=== PATIENT | male | born 1995 | race Caucasian/White ===

== ENCOUNTER 2019-11-27 13:05 | Outpatient (CLI) | payer OTHER ==
--- NOTE | 2019-11-27 14:30 | SLEEP CARE CONSULTATION ---
Information from patient questionnaire entered by Jamshid Gonzalez. I have reviewed and concur with the information entered by Jamshid Gonzalez. This document represents the service I personally performed and the decisions made by me, Emi Lane ARNP. History of Present Illness Service Date and Time: 11/27/2019 1305 Reason for Visit: New patient Chief Complaint: reports: Unrefreshed sleep, Snoring, Observed pauses in breathing (even as a kid mother would check on him due to "hiccup" during sleep), Frequent awakenings at night (intermittently), Other (Awakes at night. On a night schedule for work.). denies: Insomnia Duration of Symptoms: Over a year Usual bedtime: 0230 AM Time it takes to fall asleep: 15 min to an hour Snores at night: Yes Observed to quit breathing while asleep: Yes Sleeps alone due to snoring: No Number of times waking at night: At least once Reasons for waking at night: reports: Snoring (Mostly), Bathroom (sometimes), Other (dry mouth, wake up to drink water). denies: Choking, Gasping for air Toss, Turn, or Twitch while sleeping: Yes Recalls having dreams: Yes Usually gets out of bed at: 10 AM Feels refreshed in the morning: No Morning headache: Yes (couple times a month, last couple of hours, takes analgesic that helps) Sleepy or fatigued during the day: Yes Ever fallen asleep while driving: No Takes day naps: Yes Dreams during day naps: No Prior sleep studies: No Additional HPI information: He has a long history of not being able to breathe well through his nose. When he breathes through his mouth he snores loudly and has been seen to gasp during sleep. He has been seeing an ENT specialist who recommended he be evaluated for NEGIN to see if this is part of his snoring problem. He states he is constantly waking up through the night. 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 He denies insomnia. He does get headaches intermittently that can last all day if he does not take an OTC analgesic. He states this does not happen very often. He does wake up often during the night because his mouth is very dry and drinks water. - Parasomnia Symptoms Ever been unable to move upon waking from sleep: No Ever felt weak in the knees when startled or emotional: No Bothered by creepy, crawly, restless sensations in legs: Yes Problems with memory or concentration: Yes Subjective Initial [place] Sleepiness Scale score: 11 (in 2019) Past Medical History Past Medical History: reports: Other (E.O.E. (eosinophil esophagitis)). denies: Hypertension, Claustrophobia, Congestive Heart Failure, Diabetes, Coronary Heart Disease, Arrythmia, Hypothyroidism, Anemia, Anxiety, Impotence, Depression, Mood disorder Social History The patient's occupation is active . Patient is and lives in [place]. Have you smoked in the past 12 months: No Alcohol use: Yes Alcohol amount and frequency: 2-3 drinks casually weekly Caffeine use: Yes Caffeine amount and frequency: couple a day Family History Family history of sleep disordered breathing: Yes (Mother snores, father has insomnia) Family Hx Sleep Apnea: Mother: Snoring Allergies and Home Medications Drug allergies reviewed: Yes (no known drug allergies) Home medication list reviewed: Yes (OTC allergy medication as needed) Review of Systems Weight gain over past 5 years: 20 Cardiovascular: reports: other. denies: high blood pressure, palpitations, chest pain, irregular heart rate or pulse, leg or foot swelling, have to sleep sitting up Respiratory: denies: shortness of breath, chronic cough Gastrointestinal: reports: difficulty swallowing. denies: heartburn Urinary: denies: impotence Neurological: reports: headaches. denies: seizure, head trauma, disorientation, gait or balance problems Psychiatric: denies: anxiety, depression, mood disorder, claustrophobia Ear/Nose/Throat: reports: nasal congestion, sinus problems, nose bleeds (was getting daily, switched allergy meds and has not had last month; using humidifier), dry mouth/throat (daily), wisdom teeth removed. denies: hoarseness, injury to nose, tonsillectomy Endocrine: denies: thyroid disease, sluggishness Musculoskeletal: reports: neck pain, back pain. denies: muscle pain or cramping, mobility problems Immunologic: reports: sneezing, allergies to food or environment (seasonal allergies) Physical Exam Blood Pressure: 118/68 Cuff size: long Heart Rate: 59 O2 Saturation: 97 Height: 6 ft Weight: 253 lb 6.4 oz Body Mass Index: 34.3 BMI Classification: Obese Neck circumference: 17.5 (inches) HEENT: No craniofacial malformation Nostrils: patent to airflow Turbinates: swollen (on left mostly) Septum: midline Mouth and throat: normal Soft palate: normal Hard palate: arched Uvula: normal Uvula visualization: 25% Mallampati Class III Tongue: normal in size Tonsils: 1+ Chin and jaw: normal size and position Neck: normal w/o lymphadenopathy or thyromegaly Heart: regular rate and rhythm Lungs: clear bilaterally Impression and Plan 1. Suspected Obstructive Sleep Apnea-Hypopnea Syndrome, as suggested by a history of loud and irregular snoring, observed cessation of breath while asleep, gasping or choking in sleep, morning headache, unrefreshed sleep, and excessive daytime sleepiness. Narrow oropharynx and obesity are common predisposing factors for obstructive sleep apnea-hypopnea syndrome. I recommend proceeding to polysomnography to confirm the diagnosis and to assess severity. Patient does shift work and thinks it might be easier to do a HST due to his sleep schedule. I informed the patient of what the sleep studies involve and after some discussion, obtained agreement to proceed. The pathophysiology of obstructive sleep apnea-hypopnea syndrome was discussed with the patient and health risks of cardiovascular and cerebrovascular disease if not treated. AASM brochure for obstructive sleep apnea-hypopnea syndrome given and reviewed. Risks of drowsy driving discussed in detail and patient advised to avoid long distance driving and to ear pull machine operator at the first sign of drowsiness. Patient agreed to plan. * Schedule polysomnography. * Avoid long distance driving or driving when feeling sleepy. * Avoid alcohol, sedative and muscle relaxant around bedtime. * Attempt to lose weight. * Review instructions provided by trained office staff on how to prepare for the sleep study. * Return for follow-up after sleep study completed. Visit Type: In Office Time Spent with Patient (minutes): 30 Provider Statement: I spent 100% of the Face to Face Visit with the patient with greater than 50% spent counseling the patient and coordination of care.
[2019-11-27 14:31] VITALS: BP 118/68
== END 2019-11-27 13:06 | disposition home or self-care (01) ==
LOC: SC 13:05
PROVIDERS: ATTEND Nurse Practitioner Family
DX: R06.83 Snoring (principal); R06.81 Apnea, not elsewhere classified; G47.10 Hypersomnia, unspecified; G47.8 Other sleep disorders; E66.9 Obesity, unspecified; Z68.34 Body mass index [BMI] 34.0-34.9, adult
CPT/HCPCS: 99204; 99212

== ENCOUNTER 2020-08-16 14:18 | Emergency (ER) | payer OTHER ==
[2020-08-16 14:41] VITALS: BP 147/87
[2020-08-16] MEDS ORDERED: BUFFERED LIDOCAINE 10 ML SYRINGE SUBQ STA (14:44)
--- NOTE | 2020-08-16 14:45 | ED Physician Documentation ---
PD HPI LOWER EXT INJURY - Stated complaint Stated Complaint: R TOE INJ - Chief complaint Chief Complaint: Laceration - History obtained from History obtained from: Patient (Glass tabletop fell on his right great to at home just prior to arrival. He has moderate pain there. No other injuries.) Review of Systems Constitutional: reports: Reviewed and negative Eyes: reports: Reviewed and negative Ears: reports: Reviewed and negative PD PAST MEDICAL HISTORY - Present Medications Home Medications: Ambulatory Orders Medication Instructions Recorded Confirmed Ibuprofen 200 mg PO PRN 08/16/20 Loratadine [Claritin] 10 mg PO ONCE 08/16/20 08/16/20 - Allergies Allergies/Adverse Reactions: Allergies Allergy/AdvReac Type Severity Reaction Status Date / Time No Known Drug Allergies Allergy Verified 08/16/20 14:41 PD ED PE NORMAL - Vitals Vital signs reviewed: Yes - General General: Alert and oriented X 3, No acute distress - Extremities Extremities: Other (There is an abrasion on the dorsum of the right great toe just proximal to the nailbed and a 100% subungual hematoma.) - Neuro Neuro: Alert and oriented X 3, Normal speech Results - Vitals Vitals: Vital Signs - 24 hr 08/16/20 14:26 Temperature 36.4 C L Heart Rate 68 Respiratory 17 Rate Blood Pressure 147/87 H O2 Saturation 98 Oxygen O2 Source Room air Procedures - General procedure General procedure: After verbal informed consent a digital block was done of the right great toe in standard fashion. After an appropriate waiting period for excellent anesthesia the nail was trephinated using electrocautery with release of blood. PD MEDICAL DECISION MAKING - ED course ED course: He is released before the results of his x-ray, I did not feel there was a fracture but the radiologist felt there was a nondisplaced tuft fracture. I called him at home and discussed this. Departure - Departure Disposition: 01 Home, Self Care Clinical Impression: Subungual hematoma Toe fracture, right Qualifiers: Encounter type: initial encounter Toe: great toe Fracture type: closed Phalanx: distal Fracture alignment: nondisplaced Qualified Code(s): S92.424A - Nondisplaced fracture of distal phalanx of right great toe, initial encounter for closed fracture Condition: Good Instructions: ED Hematoma Subungual Comments: Recheck with your doctor in a week. Return for new or worsening symptoms. Forms: Activity restrictions Discharge Date/Time: 08/16/20 15:18
--- OUTSIDE RECORDS SUMMARY | 2020-08-16 14:56 | EXTERNAL MEDICAL SUMMARY RPT | Continuity of Care Document ---
:1995 Demographics Phone Unavailable Preferred Language Unknown Marital Status Unknown Congregational Affiliation Unknown Race Unknown Ethnic Group Unknown Author Organization [facility] Address [address] [place] [address] Phone Social History date description facility [id number]
--- NOTE | 2020-08-16 15:22 | XRAY Report ---
PROCEDURE: Toe(s) RT INDICATIONS: toe inj TECHNIQUE: 3 views of the right toe(s) acquired. COMPARISON: None FINDINGS: Bones: There is a minimally displaced fracture seen involving the distal lateral tip of the distal p halanx of the great toe. There is no intra-articular involvement. No additional fractures or dislocations. No suspicious bony lesions. Soft tissues: No suspicious soft tissue densities. IMPRESSION: Minimally displaced fracture involving the distal lateral tip of the distal phalanx of the great toe. Reviewed by: Ray Artis MD on 08/16/2020 2:21 PM [facility] Approved by: Ray Artis MD on 08/16/2020 2:21 PM [facility] Station ID: [id number]
== END 2020-08-16 15:18 | disposition home or self-care (01) ==
LOC: ED 14:18
DX: S92.424A Nondisplaced fracture of distal phalanx of right great toe, initial encounter for closed fracture (principal); S90.211A Contusion of right great toe with damage to nail, initial encounter; S90.411A Abrasion, right great toe, initial encounter; W25.XXXA Contact with sharp glass, initial encounter; W20.8XXA Other cause of strike by thrown, projected or falling object, initial encounter; Y92.009 Unspecified place in unspecified non-institutional (private) residence as the place of occurrence of the external cause
CPT/HCPCS: 11740; 99282; 99283

== ENCOUNTER 2020-10-14 07:59 | Outpatient (CLI) | payer OTHER | END 2020-10-14 23:59 | disposition home or self-care (01) | LOC: LAB.N 07:59 | PROVIDERS: ATTEND Family Medicine | DX: R05 Cough (principal); Z20.822 Contact with and (suspected) exposure to COVID-19 ==

== ENCOUNTER 2021-02-21 16:22 | Emergency (ER) | payer OTHER ==
[2021-02-21 16:40] VITALS: BP 145/91
--- NOTE | 2021-02-21 17:07 | ED Physician Documentation ---
History of Present Illness - Stated complaint Stated Complaint: COUGH,CONGESTION,BODYACHE - Chief complaint Chief Complaint: General - History obtained from History obtained from: Patient - History of Present Illness Timing: How many days ago (4-5) Pain level max: 0 Pain level now: 0 - Additonal information Additional information: Patient is a 25-year-old male who is here for a Covid test. He has had cough, congestion and body aches. 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 No trouble breathing. No chest pain. Nothing makes it better or worse. Review of Systems Constitutional: reports: Myalgias. denies: Fever, Chills Nose: reports: Rhinorrhea / runny nose, Congestion Respiratory: reports: Cough GI: denies: Abdominal Pain, Vomiting, Diarrhea : denies: Dysuria PD PAST MEDICAL HISTORY - Past Medical History Past Medical History: No - Past Surgical History Past Surgical History: No - Present Medications Home Medications: Ambulatory Orders Medication Instructions Recorded Confirmed Ibuprofen 200 mg PO PRN 08/16/20 Loratadine [Claritin] 10 mg PO ONCE 08/16/20 08/16/20 - Allergies Allergies/Adverse Reactions: Allergies Allergy/AdvReac Type Severity Reaction Status Date / Time No Known Drug Allergies Allergy Verified 02/21/21 16:37 - Social History Does the pt smoke?: No Smoking Status: Never smoker PD ED PE NORMAL - Vitals Vital signs reviewed: Yes - General General: Alert and oriented X 3, No acute distress, Well developed/nourished - HEENT HEENT: Moist mucous membranes, Pharynx benign - Neck Neck: Supple, no meningeal sign - Cardiac Cardiac: RRR, Strong equal pulses - Respiratory Respiratory: No respiratory distress, Clear bilaterally - Abdomen Abdomen: Soft, Non tender, Non distended - Derm Derm: Warm and dry - Neuro Neuro: Alert and oriented X 3 - Psych Psych: Normal mood, Normal affect Results - Vitals Vitals: Oxygen O2 Source Room air PD MEDICAL DECISION MAKING - ED course Complexity details: considered differential, d/w patient ED course: Covid testing performed. Patient will self quarantine until the results are back. Patient is well-appearing, nontoxic. No indication for further testing at this time. Patient counseled regarding signs and symptoms for which I believe and urgent re-evaluation would be necessary. Patient with good understanding of and agreement to plan and is comfortable going home at this time This document was made in part using voice recognition software. While efforts are made to proofread this document, sound alike and grammatical errors may occur. Departure - Departure Disposition: 01 Home, Self Care Clinical Impression: Viral URI with cough Condition: Good Instructions: ED Viral Syndrome Follow-Up: Provider,Other [Primary Care Provider] - Within 1 week Comments: You have a Covid test pending. You need to self quarantine until the result is done and negative. The results should be done in 24-48 hours. We will call with a positive result, the fastest way to get a negative result for confirmation though is to go to the hospital website at [email or web address], click on the my [facility] tab and sign up for the patient portal. If any of your friends and/or family need to be tested, they can call the hospital at [phone] for an appointment to have their Covid test. Discharge Date/Time: 02/21/21 17:14
== END 2021-02-21 17:14 | disposition home or self-care (01) ==
LOC: ED 16:22
DX: J06.9 Acute upper respiratory infection, unspecified (principal); Z20.822 Contact with and (suspected) exposure to COVID-19
CPT/HCPCS: 99282; 99283

== ENCOUNTER 2021-05-12 11:44 | Emergency (ER) | payer OTHER ==
--- NOTE | 2021-05-12 12:19 | XRAY Report ---
PROCEDURE: Chest 1 View X-Ray INDICATIONS: Chest pain TECHNIQUE: One view of the chest was acquired. COMPARISON: None FINDINGS: Surgical changes and devices: None. Lungs and pleura: No pleural effusions or pneumothorax. Lungs are clear. Mediastinum: Mediastinal contours appear normal. Heart size is normal. Bones and chest wall: No suspicious bony lesions. Overlying soft tissues appear unremarkable. IMPRESSION: No acute cardiopulmonary disease process. Reviewed by: Gris Brown MD, PhD on 05/12/2021 11:18 AM [facility] Approved by: Gris Brown MD, PhD on 05/12/2021 11:18 AM [facility] Station ID: [id number]
[2021-05-12 13:10] LABS: BASOPHILS # (AUTO) 0.1 10^3/uL (0.0-0.1); EOSINOPHILS # (AUTO) 0.6 10^3/uL (0.0-0.7); EOSINOPHILS % (AUTO) 9.1 %; HCT - HEMATOCRIT 44.4 % (42.0-52.0); HGB - HEMOGLOBIN 15.2 g/dL (14.0-18.0); LYMPHOCYTES # (AUTO) 2.5 10^3/uL (1.5-3.5); LYMPHOCYTES % (AUTO) 35.4 %; MEAN CORPUSCULAR HGB CONC 34.2 g/dL (32.0-36.0); MEAN CORPUSCULAR VOLUME 84.6 fL (80.0-94.0); MEAN PLATELET VOLUME 10.3 fL (7.4-11.4); MONOCYTES # (AUTO) 0.6 10^3/uL (0.0-1.0); MONOCYTES % (AUTO) 8.6 %; NEUTROPHILS # (AUTO) 3.2 10^3/uL (1.5-6.6); NEUTROPHILS % (AUTO) 45.8 %; PLT - PLATELET COUNT 222 10^3/uL (130-450); RED BLOOD COUNT 5.25 10^6/uL (4.70-6.10); RED CELL DISTRIBUTION WIDTH 11.9 % (12.0-15.0)
[2021-05-12 13:36] LABS: ALBUMIN 4.3 g/dL (3.2-5.5); ALBUMIN/GLOBULIN RATIO 1.2 (1.0-2.2); BILIRUBIN,TOTAL 0.6 mg/dL (0.2-1.0); POTASSIUM 3.9 mmol/L (3.5-5.0); TOTAL PROTEIN 7.8 g/dL (6.7-8.2)
[2021-05-12 13:51] VITALS: BP 130/59
--- NOTE | 2021-05-12 17:20 | ED Physician Documentation ---
History of Present Illness - Stated complaint Stated Complaint: CHEST PX - Chief complaint Chief Complaint: Cardiac - Additonal information Additional information: 25-year-old male presents emergency department for evaluation of left-sided c hest pain. Pain began about 1030 last night when he was getting ready for bed. He did not think much of it but it persisted through the night limiting his ability to sleep and this morning when he is getting ready for work and bent over he felt the pain was worse. He describes it as pleuritic. Worse when he takes a deep breath. No recent cough cold congestion or fevers. He is fully vaccinated for COVID-19. No recent travel, immobilization, hormone use or unilateral leg swelling. No personal history of DVT or cancer. He states that he has had similar in the past when he had a pulled muscle but this does not feel like a pulled muscle to him as he has had no recent activities that would suggest this. No tobacco use. Review of Systems Constitutional: denies: Fever, Chills Eyes: reports: Reviewed and negative Nose: reports: Reviewed and negative Throat: reports: Reviewed and negative Cardiac: reports: Chest pain / pressure. denies: Palpitations, Pedal edema, Calf pain Respiratory: denies: Dyspnea, Cough GI: reports: Reviewed and negative : reports: Reviewed and negative Skin: reports: Reviewed and negative Musculoskeletal: reports: Reviewed and negative Neurologic: reports: Reviewed and negative Psychiatric: reports: Reviewed and negative PD PAST MEDICAL HISTORY - Past Surgical History Past Surgical History: No - Present Medications Home Medications: Ambulatory Orders Medication Instructions Recorded Confirmed Ibuprofen 200 mg PO PRN 08/16/20 Loratadine [Claritin] 10 mg PO ONCE 08/16/20 08/16/20 - Allergies Allergies/Adverse Reactions: Allergies Allergy/AdvReac Type Severity Reaction Status Date / Time No Known Drug Allergies Allergy Verified 05/12/21 12:02 - Social History Does the pt smoke?: No Smoking Status: Never smoker PD ED PE NORMAL - General General: Alert and oriented X 3, No acute distress - HEENT HEENT: PERRL - Cardiac Cardiac: RRR, No murmur - Respiratory Respiratory: Clear bilaterally - Abdomen Abdomen: Normal bowel sounds, Soft, Non tender, Non distended - Back Back: No CVA TTP, No spinal TTP - Derm Derm: Normal color, Warm and dry, No rash - Extremities Extremities: No deformity, No tenderness to palpate, Normal ROM s pain, No edema, No calf tenderness / cord - Neuro Neuro: Alert and oriented X 3, integration analyst 2-12 intact, No motor deficit Eye Opening: Spontaneous Motor: Obeys Commands Verbal: Oriented GCS Score: 15 Results - Vitals Vitals: Vital Signs - 24 hr 05/12/21 05/12/21 11:56 13:50 Temperature 36.1 C L 36.8 C Heart Rate 67 89 Respiratory 18 18 Rate Blood Pressure 141/78 H 130/59 L O2 Saturation 99 100 Oxygen O2 Source Room air - EKG (time done) 1152 Rate: Rate (enter#) (61) Rhythm: NSR [place]: Normal Intervals: Normal OR QRS: Normal Ischemia: ST elevation c/w repol Compare to prior EKG: Old EKG unavailable Computer interpretation: Agree with computer - Labs Labs: Laboratory Tests 05/12/21 05/12/21 05/12/21 13:00 13:00 13:00 WBC 7.0 RBC 5.25 Hgb 15.2 Hct 44.4 MCV 84.6 MCH 29.0 MCHC 34.2 RDW 11.9 L Plt Count 222 MPV 10.3 Neut # (Auto) 3.2 Lymph # (Auto) 2.5 [place] # (Auto) 0.6 Eos # (Auto) 0.6 Baso # (Auto) 0.1 Absolute Nucleated RBC 0.00 Nucleated RBC % 0.0 D-Dimer Sodium 135 Potassium 3.9 Chloride 100 L Carbon Dioxide 27 Anion Gap 8.0 BUN 16 Creatinine 1.0 Estimated GFR (MDRD) 92 Glucose 98 Calcium 9.0 Total Bilirubin 0.6 AST 19 ALT 33 Alkaline Phosphatase 56 Troponin I High Sens 3.8 Total Protein 7.8 Albumin 4.3 Globulin 3.5 Albumin/Globulin Ratio 1.2 Lipase 35 05/12/21 17:34 WBC RBC Hgb Hct MCV MCH MCHC RDW Plt Count MPV Neut # (Auto) Lymph # (Auto) [place] # (Auto) Eos # (Auto) Baso # (Auto) Absolute Nucleated RBC Nucleated RBC % D-Dimer 209.4 Sodium Potassium Chloride Carbon Dioxide Anion Gap BUN Creatinine Estimated GFR (MDRD) Glucose Calcium Total Bilirubin AST ALT Alkaline Phosphatase Troponin I High Sens Total Protein Albumin Globulin Albumin/Globulin Ratio Lipase - Rads (name of study) CXR Radiology: Final report received (no acute cardiopulmonary process) Departure - Departure Disposition: 01 Home, Self Care Clinical Impression: Chest pain Qualifiers: Chest pain type: unspecified Qualified Code(s): R07.9 - Chest pain, unspecified Condition: Stable Record reviewed to determine appropriate education?: Yes Comments: You are seen in the emergency department today for chest pain. Your EKG, chest x-ray and labs are all essentially normal. As we discussed at the bedside because when we pressed on your chest it seems to hurt more. This most likely means that the muscles are mildly inflamed. I recommend that you take ibuprofen or Tylenol for any discomfort. We do have a COVID test pending on you today. It may be 2 to 4 days before we have the results you do need to remain in isolation Until the test results are known. You have a Covid test pending. You need to self quarantine until the result is done and negative. Do not leave your house. Do not get near anybody. The results should be done in 48 to 72 hours. We will call with a positive result, the fastest way to get a negative result for confirmation though is to go to the hospital website at [email or web address], click on the my [email or web address] tab and sign up for the patient portal. If any friends or family get sick and would like to have a Covid test done, but do not have signs or symptoms that would necessitate being hospitalized, there are multiple local options for Covid testing. [facility] keeps an updated list of testing and vaccination options at [email or web address]
== END 2021-05-12 18:38 | disposition home or self-care (01) ==
LOC: ED 11:44
DX: R07.9 Chest pain, unspecified (principal); Z20.822 Contact with and (suspected) exposure to COVID-19
CPT/HCPCS: 36415; 80053; 83690; 84484; 85025; 85379; 93005; 99283; 99284

== ENCOUNTER 2021-05-19 08:00 | Outpatient (CLI) | payer OTHER | END 2021-05-19 23:59 | LOC: LAB 08:00 | PROVIDERS: ATTEND Physician Assistant | DX: R05.9 Cough, unspecified (principal); Z20.822 Contact with and (suspected) exposure to COVID-19 | CPT/HCPCS: 87275; 87276 ==